=== PATIENT | female | born 1980 | race Caucasian/White ===

== ENCOUNTER 2016-04-29 17:54 | Emergency (ER) | payer MEDICAID ==
--- NOTE | 2016-04-29 18:00 | NUR ---
Patient yelling, states "Im dying you guys need to get me in right now my appendix burst!" When asked to wait a few minutes, patient said, "what if im dying in a few minutes, fuck you! Im going to leave."
--- NOTE | 2016-04-29 18:10 | NUR ---
PT CALLED NO ANSWER
--- NOTE | 2016-04-29 18:15 | NUR ---
PT CALLED NO ANSWER
--- NOTE | 2016-04-29 18:30 | NUR ---
PT CALLED NO ANSWER
--- NOTE | 2016-04-29 18:45 | NUR ---
PT CALLED NO ANSWER
== END 2016-04-29 18:45 | disposition left against medical advice (07) ==
LOC: SED 17:54
DX: R10.9 Unspecified abdominal pain (principal); Z53.21 Procedure and treatment not carried out due to patient leaving prior to being seen by health care provider

== ENCOUNTER 2019-03-20 22:07 | Emergency (ER) | payer SELFPAY ==
[~2019-03-20] VITALS: Ht 175.3 cm; Wt 90.7 kg
[2019-03-20 22:40] VITALS: BP_SYST 136
--- NOTE | 2019-03-20 22:52 | NUR ---
Patient triaged and placed in waiting room. VSS and patient appears in no acute distress at this time. Accompanied by daughter, awaiting available bed, and MD notified of need for MSE.
--- NOTE | 2019-03-21 | NUR ---
Patient left without being seen. No further treatment provided, ER MD aware
== END 2019-03-21 | disposition left against medical advice (07) ==
LOC: SED 22:07
DX: R51 Headache (principal); Z53.21 Procedure and treatment not carried out due to patient leaving prior to being seen by health care provider